=== PATIENT | male | born 1985 | race African-American/Black ===

== ENCOUNTER 2016-03-28 16:19 | Emergency (ER) | payer SELFPAY ==
[~2016-03-28] VITALS: Ht 182.9 cm; Wt 88.2 kg
[~2016-03-28 16:19] MED LIST: AMOXICILLIN; AMOXICILLIN 50500 MG PO; AMOXICILLIN 8751 TAB PO; AMOXICILLIN875 MG PO; BIAXIN 500MG T500 MG PO; DILANTIN; DILANTIN PO; FELDENE10 MG PO; FLEXERIL 1010 MG/TAB PO; LORTAB 5/500 501 TAB PO; NO HOME MEDICATIONS; NORCO 325 MG-51 TAB PO; PERCOCET 325 MG1 TA2 PO; PHENERGAN 25 TA25 MG PO; PREVACID 30MG30 M1 PO; TOPICAINE4% TP; ULTRAM 50MG TAB50 MG PO; ZOFRAN 4MG T4 MG/TAB PO
[2016-03-28 16:31] VITALS: BP 119/84; PULSE 83; TEMP 98.1
[2016-03-28] MEDS ORDERED: AMOXICILLIN 50500 MG PO (17:11)
== END 2016-03-28 17:19 | disposition home or self-care (01) ==
LOC: COL.ER 16:19
DX: H65.192 Other acute nonsuppurative otitis media, left ear (principal)

== ENCOUNTER 2016-04-22 06:04 | Emergency (ER) | payer SELFPAY ==
[~2016-04-22] VITALS: Ht 182.9 cm; Wt 90.9 kg
[2016-04-22 07:02] VITALS: BP 151/81; PULSE 73; TEMP 98
== END 2016-04-22 07:03 | disposition home or self-care (01) ==
LOC: COL.ER 06:04
DX: S60.451A Superficial foreign body of left index finger, initial encounter (principal); S60.457A Superficial foreign body of left little finger, initial encounter; S60.453A Superficial foreign body of left middle finger, initial encounter; S60.455A Superficial foreign body of left ring finger, initial encounter; S60.352A Superficial foreign body of left thumb, initial encounter; X58.XXXA Exposure to other specified factors, initial encounter; Y92.009 Unspecified place in unspecified non-institutional (private) residence as the place of occurrence of the external cause

== ENCOUNTER 2016-06-01 01:57 | Emergency (ER) | payer SELFPAY ==
[~2016-06-01] VITALS: Ht 185.4 cm; Wt 85.0 kg
[2016-06-01 02:01] VITALS: TEMP 98.3
[2016-06-01 03:03] LABS: BASO % 0.4 % (0.0-2.0); EOS # 0.1 (0.0-0.7); EOS % 1.3 % (0-4.0); GRAN # 2.3 (1.4-6.5); GRAN % 42.3 % (42.2-75.2); HEMOGLOBIN 15.8 g/dl (13.5-18.0); LYMPH # 2.6 (1.2-3.4); LYMPH % 47.4 % (20.0-51.0); MEAN CELL VOLUME 90 fl (80.0-100.0); MEAN CORPUSCULAR HEMOGLOBIN 29 pg (27.0-31.0); MEAN CORPUSCULAR HGB CONC 32 g/dl (33.0-37.0); MEAN PLATELET VOLUME 11.5 fl (7.4-10.4); MONO # 0.5 (0.1-0.6); MONO % 8.4 % (1.7-9.3); PLATELET COUNT 217 K/mm3 (130-400); RED BLOOD COUNT 5.46 M/mm3 (4.20-5.60); REDCELL DISTRIBUTION WIDTH-CV 11.8 % (11.5-14.5); WHITE BLOOD COUNT 5.5 K/mm3 (4.8-10.8)
[2016-06-01 03:17] LABS: ADJUSTED CALCIUM 9.2 mg/dL (8.4-10.2); ALANINE AMINOTRANSFERASE 58 U/L (21-72); ALBUMIN 4.7 gm/dL (3.5-5.0); ALKALINE PHOSPHATASE 107 U/L (50-136); ANION GAP 13 mmol/L (7-16); BILIRUBIN,TOTAL 0.9 mg/dL (0.0-1.0); BLOOD UREA NITROGEN 13 mg/dL (9-20); CALCIUM 9.8 mg/dL (8.4-10.2); CARBON DIOXIDE 24 mmol/L (22-30); CHLORIDE 103 mmol/L (98-107); CREATININE, serum 0.87 mg/dL (0.66-1.25); GLUCOSE 88 mg/dL (74-106); LIPASE 234 U/L (23-300); POTASSIUM 4.4 mmol/L (3.4-5.0); SODIUM 140 mmol/L (137-145); TOTAL PROTEIN 8.4 gm/dL (6.4-8.2)
[2016-06-01 03:17] LABS: PH 5 (5-8); SQUAMOUS EPITHELIAL None Seen /hpf; URINE APPEARANCE Clear; URINE BACTERIA None Seen /hpf; URINE BILIRUBIN Negative (NEGATIVE); URINE BLOOD Negative (NEGATIVE); URINE COLOR Yellow; URINE GLUCOSE Negative (NEGATIVE); URINE KETONE Negative (NEGATIVE); URINE RBC 0-2 /hpf; URINE UROBILINOGEN >=4.0 mg/dL (NEGATIVE); URINE WBC 0-2 /hpf
[2016-06-01 03:19] LABS: C-REACTIVE PROTEIN < 0.5 mg/dL (0.0-0.9)
[2016-06-01] MEDS ORDERED: NORCO 325 MG-51 TAB PO (04:13)
[2016-06-01] MEDS ORDERED: FLEXERIL 1010 MG/TAB PO (04:13)
[2016-06-01 04:38] VITALS: BP 119/53; PULSE 68
== END 2016-06-01 04:44 | disposition home or self-care (01) ==
LOC: COL.ER 01:57
PROVIDERS: Physician Assistant
DX: R10.12 Left upper quadrant pain (principal); M54.89 Other dorsalgia
CPT/HCPCS: J1170; J1885; J2060; J2405; J3010; J7030

== ENCOUNTER 2016-06-03 14:39 | Emergency (ER) | payer SELFPAY ==
[~2016-06-03] VITALS: Ht 185.4 cm; Wt 85.0 kg
[2016-06-03 14:42] VITALS: BP 133/75; TEMP 97.6
[2016-06-03 15:28] LABS: BASO % 0.5 % (0.0-2.0); EOS % 1.1 % (0-4.0); GRAN # 1.5 (1.4-6.5); GRAN % 41.8 % (42.2-75.2); HEMOGLOBIN 15.6 g/dl (13.5-18.0); LYMPH # 1.7 (1.2-3.4); LYMPH % 45.4 % (20.0-51.0); MEAN CELL VOLUME 91 fl (80.0-100.0); MEAN CORPUSCULAR HEMOGLOBIN 29 pg (27.0-31.0); MEAN CORPUSCULAR HGB CONC 32 g/dl (33.0-37.0); MONO # 0.4 (0.1-0.6); MONO % 10.9 % (1.7-9.3); PLATELET COUNT 207 K/mm3 (130-400); RED BLOOD COUNT 5.41 M/mm3 (4.20-5.60); REDCELL DISTRIBUTION WIDTH-CV 11.7 % (11.5-14.5); WHITE BLOOD COUNT 3.7 K/mm3 (4.8-10.8)
[2016-06-03 15:38] LABS: ADJUSTED CALCIUM 9.2 mg/dL (8.4-10.2); ALBUMIN 4.5 gm/dL (3.5-5.0); CALCIUM 9.6 mg/dL (8.4-10.2); CREATININE, serum 0.83 mg/dL (0.66-1.25); POTASSIUM 4.5 mmol/L (3.4-5.0)
[2016-06-03] MEDS ORDERED: NORCO 325 MG-51 TAB PO (16:18)
[2016-06-03 16:25] LABS: PH 7 (5-8); SQUAMOUS EPITHELIAL None Seen /hpf; URINE APPEARANCE Clear; URINE BACTERIA Rare /hpf; URINE BILIRUBIN Negative (NEGATIVE); URINE BLOOD Negative (NEGATIVE); URINE COLOR Yellow; URINE GLUCOSE Negative (NEGATIVE); URINE KETONE Negative (NEGATIVE); URINE RBC 0-2 /hpf; URINE UROBILINOGEN Negative (NEGATIVE); URINE WBC 0-2 /hpf
[2016-06-03 16:51] VITALS: PULSE 70
== END 2016-06-03 16:53 | disposition home or self-care (01) ==
LOC: COL.ER 14:39
PROVIDERS: Family Medicine
DX: R10.12 Left upper quadrant pain (principal); R10.32 Left lower quadrant pain
CPT/HCPCS: J1885; J2405; J7030; Q9967

== ENCOUNTER 2016-07-23 08:39 | Emergency (ER) | payer SELFPAY ==
[~2016-07-23] VITALS: Ht 182.9 cm; Wt 82.3 kg
[2016-07-23 08:42] VITALS: BP 143/85; TEMP 98.9
[2016-07-23] MEDS ORDERED: MULTIPLE VITAMI1 CAP PO (08:47)
[2016-07-23] MEDS ORDERED: ZITHROMAX Z PA250 MG PO (10:30)
[2016-07-23 11:01] VITALS: PULSE 81
== END 2016-07-23 11:03 | disposition home or self-care (01) ==
LOC: COL.ER 08:39
DX: J40 Bronchitis, not specified as acute or chronic (principal); F31.9 Bipolar disorder, unspecified; G40.909 Epilepsy, unspecified, not intractable, without status epilepticus; R73.03 Prediabetes; F17.210 Nicotine dependence, cigarettes, uncomplicated

== ENCOUNTER 2018-07-03 20:08 | Emergency (ER) | payer SELFPAY ==
[~2018-07-03] VITALS: Ht 182.9 cm; Wt 91.4 kg
[~2018-07-03 20:08] MED LIST changes: +MULTIPLE VITAMI1 CAP PO; +ZITHROMAX Z PA250 MG PO
[2018-07-03 20:16] VITALS: TEMP 97.3
[2018-07-03 20:58] LABS: BASO % 0.4 % (0.0-2.0); EOS # 0.1 (0.0-0.7); EOS % 1.3 % (0-4.0); GRAN # 2.1 (1.4-6.5); GRAN % 44.3 % (42.2-75.2); HEMATOCRIT 45.8 % (42.0-52.0); HEMOGLOBIN 14.8 g/dl (13.5-18.0); LYMPH # 2.1 (1.2-3.4); LYMPH % 45.3 % (20.0-51.0); MEAN CELL VOLUME 91 fl (80.0-100.0); MEAN CORPUSCULAR HEMOGLOBIN 30 pg (27.0-31.0); MEAN CORPUSCULAR HGB CONC 32 g/dl (33.0-37.0); MEAN PLATELET VOLUME 10.8 fl (7.4-10.4); MONO # 0.4 (0.1-0.6); MONO % 8.5 % (1.7-9.3); PLATELET COUNT 206 K/mm3 (130-400); RED BLOOD COUNT 5.02 M/mm3 (4.20-5.60); REDCELL DISTRIBUTION WIDTH-CV 11.7 % (11.5-14.5)
[2018-07-03 21:13] LABS: ALANINE AMINOTRANSFERASE 52 U/L (21-72); ALBUMIN 4.2 gm/dL (3.5-5.0); ALKALINE PHOSPHATASE 91 U/L (50-136); ANION GAP 8 mmol/L (7-16); AST,SGOT 41 U/L (15-37); BILIRUBIN,TOTAL 0.7 mg/dL (0.0-1.0); BLOOD UREA NITROGEN 10 mg/dL (9-20); CALCIUM 9.5 mg/dL (8.4-10.2); CARBON DIOXIDE 26 mmol/L (22-30); CHLORIDE 104 mmol/L (98-107); CREATININE, serum 0.91 (0.66-1.25); GLUCOSE 136 mg/dL (74-106); POTASSIUM 3.6 mmol/L (3.4-5.0); SODIUM 138 mmol/L (137-145); TOTAL PROTEIN 7.4 gm/dL (6.4-8.2)
[2018-07-03 21:14] LABS: C-REACTIVE PROTEIN < 0.5 mg/dL (0.0-0.9)
[2018-07-03] MEDS ORDERED: PRINIVIL5 MG PO (21:28)
[2018-07-03] MEDS ORDERED: LOPRESSOR 225 MG/TAB PO (21:28)
[2018-07-03 21:35] LABS: TROPONIN-I < 0.012 ng/mL (0.000-0.035)
[2018-07-03 22:05] VITALS: BP 144/94; PULSE 69
== END 2018-07-03 22:00 | disposition home or self-care (01) ==
LOC: COL.ER 20:08
PROVIDERS: Emergency Medicine
DX: R07.89 Other chest pain (principal); I50.9 Heart failure, unspecified; I48.91 Unspecified atrial fibrillation

== ENCOUNTER 2018-09-14 01:22 | Emergency (ER) | payer SELFPAY ==
[~2018-09-14] VITALS: Ht 180.3 cm; Wt 92.3 kg
[~2018-09-14 01:22] MED LIST changes: +LOPRESSOR 225 MG/TAB PO; +PRINIVIL5 MG PO
[2018-09-14 01:39] VITALS: BP 125/78
[2018-09-14] MEDS ORDERED: ASPIRIN 81M81 MG/TA2 PO (01:48)
[2018-09-14 02:26] LABS: BASO % 0.5 % (0.0-2.0); EOS # 0.1 (0.0-0.7); EOS % 0.9 % (0-4.0); GRAN # 2.1 (1.4-6.5); GRAN % 36.4 % (42.2-75.2); HEMATOCRIT 45.6 % (42.0-52.0); HEMOGLOBIN 14.6 g/dl (13.5-18.0); LYMPH # 3.2 (1.2-3.4); LYMPH % 55.5 % (20.0-51.0); MEAN CELL VOLUME 92 fl (80.0-100.0); MEAN CORPUSCULAR HEMOGLOBIN 30 pg (27.0-31.0); MEAN CORPUSCULAR HGB CONC 32 g/dl (33.0-37.0); MEAN PLATELET VOLUME 11.1 fl (7.4-10.4); MONO # 0.4 (0.1-0.6); MONO % 6.4 % (1.7-9.3); PLATELET COUNT 204 K/mm3 (130-400); RED BLOOD COUNT 4.94 M/mm3 (4.20-5.60); REDCELL DISTRIBUTION WIDTH-CV 11.9 % (11.5-14.5)
[2018-09-14 02:31] LABS: INR 0.9 (0.8-3.0); PROTHROMBIN TIME 10.2 SECONDS (9.7-12.8)
[2018-09-14 02:35] LABS: ALANINE AMINOTRANSFERASE 54 U/L (21-72); ALBUMIN 4.1 gm/dL (3.5-5.0); ALKALINE PHOSPHATASE 84 U/L (50-136); ANION GAP 10 mmol/L (7-16); AST,SGOT 53 U/L (15-37); BILIRUBIN,TOTAL 0.4 mg/dL (0.0-1.0); BLOOD UREA NITROGEN 14 mg/dL (9-20); CALCIUM 9.4 mg/dL (8.4-10.2); CARBON DIOXIDE 27 mmol/L (22-30); CHLORIDE 103 mmol/L (98-107); CREATININE, serum 1.02 (0.66-1.25); GLUCOSE 117 mg/dL (74-106); POTASSIUM 3.7 mmol/L (3.4-5.0); SODIUM 140 mmol/L (137-145); TOTAL PROTEIN 7.2 gm/dL (6.4-8.2)
[2018-09-14 02:46] LABS: TROPONIN-I < 0.012 ng/mL (0.000-0.035)
[2018-09-14] MEDS ORDERED: PEPCID 20MG TAB20 MG PO (03:43)
== END 2018-09-14 04:05 | disposition home or self-care (01) ==
LOC: COL.ER 01:22
PROVIDERS: Emergency Medicine
DX: K29.70 Gastritis, unspecified, without bleeding (principal); K21.9 Gastro-esophageal reflux disease without esophagitis; J45.909 Unspecified asthma, uncomplicated; I48.91 Unspecified atrial fibrillation; F17.210 Nicotine dependence, cigarettes, uncomplicated; Z79.82 Long term (current) use of aspirin

== ENCOUNTER 2018-10-12 00:15 | Emergency (ER) | payer SELFPAY ==
[~2018-10-12] VITALS: Ht 180.3 cm; Wt 93.2 kg
[~2018-10-12 00:15] MED LIST changes: +ASPIRIN 81M81 MG/TA2 PO; +PEPCID 20MG TAB20 MG PO
[2018-10-12 00:25] VITALS: BP 121/94; TEMP 97.5
[2018-10-12 01:08] LABS: STREP SCREEN POSITIVE
[2018-10-12 01:51] VITALS: PULSE 82
== END 2018-10-12 01:42 | disposition home or self-care (01) ==
LOC: COL.ER 00:15
PROVIDERS: Nurse Practitioner
DX: J02.0 Streptococcal pharyngitis (principal); Z79.82 Long term (current) use of aspirin
CPT/HCPCS: J0561

== ENCOUNTER 2019-03-09 12:52 | Emergency (ER) | payer BC ==
[~2019-03-09] VITALS: Ht 182.9 cm; Wt 85.8 kg
[2019-03-09 15:29] LABS: BASO % 0.4 % (0.0-2.0); EOS % 0.7 % (0-4.0); GRAN # 3.1 (1.4-6.5); HEMATOCRIT 47.1 % (42.0-52.0); HEMOGLOBIN 15.1 g/dl (13.5-18.0); LYMPH # 1.7 (1.2-3.4); LYMPH % 32.5 % (20.0-51.0); MEAN CELL VOLUME 92 fl (80.0-100.0); MEAN CORPUSCULAR HEMOGLOBIN 30 pg (27.0-31.0); MEAN CORPUSCULAR HGB CONC 32 g/dl (33.0-37.0); MEAN PLATELET VOLUME 10.9 fl (7.4-10.4); MONO # 0.4 (0.1-0.6); PLATELET COUNT 192 K/mm3 (130-400); RED BLOOD COUNT 5.11 M/mm3 (4.20-5.60); REDCELL DISTRIBUTION WIDTH-CV 11.5 % (11.5-14.5)
[2019-03-09 15:45] LABS: ALANINE AMINOTRANSFERASE 46 U/L (21-72); ALBUMIN 4.3 gm/dL (3.5-5.0); ALKALINE PHOSPHATASE 84 U/L (50-136); ANION GAP 8 mmol/L (7-16); AST,SGOT 34 U/L (15-37); BILIRUBIN,TOTAL 0.9 mg/dL (0.0-1.0); BLOOD UREA NITROGEN 11 mg/dL (9-20); CALCIUM 9.1 mg/dL (8.4-10.2); CARBON DIOXIDE 26 mmol/L (22-30); CHLORIDE 107 mmol/L (98-107); CREATININE, serum 0.84 (0.66-1.25); GLUCOSE 105 mg/dL (74-106); SODIUM 140 mmol/L (137-145); TOTAL PROTEIN 7.3 gm/dL (6.4-8.2)
[2019-03-09 16:03] LABS: TROPONIN-I < 0.012 ng/mL (0.000-0.035)
[2019-03-09] MEDS ORDERED: ULTRAM 50MG TAB50 MG PO (16:21)
[2019-03-09 16:41] VITALS: BP 130/79; PULSE 61; TEMP 98.2
== END 2019-03-09 16:55 | disposition home or self-care (01) ==
LOC: COL.ER 12:52
PROVIDERS: Nurse Practitioner
DX: R07.89 Other chest pain (principal); I50.9 Heart failure, unspecified; J45.909 Unspecified asthma, uncomplicated; F31.9 Bipolar disorder, unspecified; F17.210 Nicotine dependence, cigarettes, uncomplicated
CPT/HCPCS: J1885

== ENCOUNTER 2019-03-19 14:16 | Emergency (ER) | payer SELFPAY ==
[~2019-03-19] VITALS: Ht 182.9 cm; Wt 85.5 kg
[2019-03-19 14:34] VITALS: BP 131/76; TEMP 98.8
[2019-03-19] MEDS ORDERED: NORCO 325 MG-51 TAB PO (16:53)
[2019-03-19 18:55] VITALS: PULSE 61
== END 2019-03-19 19:11 | disposition home or self-care (01) ==
LOC: COL.ER 14:16
DX: S62.620A Displaced fracture of middle phalanx of right index finger, initial encounter for closed fracture (principal); S29.012A Strain of muscle and tendon of back wall of thorax, initial encounter; I50.9 Heart failure, unspecified; F31.9 Bipolar disorder, unspecified; G40.909 Epilepsy, unspecified, not intractable, without status epilepticus; F17.210 Nicotine dependence, cigarettes, uncomplicated; W00.0XXA Fall on same level due to ice and snow, initial encounter

== ENCOUNTER 2019-04-26 14:04 | Outpatient (RCR) | payer OTHER | END 2019-06-28 | disposition home or self-care (01) | LOC: WSOH | DX: S30.0XXA Contusion of lower back and pelvis, initial encounter (principal); S20.222A Contusion of left back wall of thorax, initial encounter; F17.210 Nicotine dependence, cigarettes, uncomplicated; Y99.0 Civilian activity done for income or pay ==

== ENCOUNTER 2021-03-29 21:40 | Emergency (ER) | payer MEDICAID ==
[~2021-03-29] VITALS: Ht 182.9 cm; Wt 88.6 kg
[2021-03-29 21:45] VITALS: TEMP 98.2
[2021-03-29 22:31] LABS: BASO % 0.5 % (0.0-2.0); EOS # 0.1 K/mm3 (0.0-0.7); EOS % 1.3 % (0.0-4.0); GRAN # 2.6 K/mm3 (1.4-6.5); GRAN % 43.9 % (42.2-75.2); HEMATOCRIT 45.6 % (42.0-52.0); HEMOGLOBIN 14.4 g/dl (13.5-18.0); LYMPH # 2.8 K/mm3 (1.2-3.4); LYMPH % 46.1 % (20.0-51.0); MEAN CELL VOLUME 90 fl (80.0-100.0); MEAN CORPUSCULAR HEMOGLOBIN 29 pg (27-31); MEAN CORPUSCULAR HGB CONC 32 g/dl (33.0-37.0); MEAN PLATELET VOLUME 10.5 fl (7.4-10.4); MONO # 0.5 K/mm3 (0.1-0.6); PLATELET COUNT 253 K/mm3 (130-400); RED BLOOD COUNT 5.06 M/mm3 (4.20-5.60)
[2021-03-29 22:41] LABS: COLLECTION METHOD CLEAN CATCH
[2021-03-29 22:47] LABS: MUCOUS Present (NOT PRESENT); PH 6 (5-8); SQUAMOUS EPITHELIAL None Seen /hpf (0-10); URINE APPEARANCE Clear (CLEAR/HAZY); URINE BACTERIA None Seen /hpf (NONE SEEN); URINE BILIRUBIN Negative (NEGATIVE); URINE BLOOD Negative (NEGATIVE); URINE COLOR Yellow (YELLOW); URINE GLUCOSE Negative (NEGATIVE); URINE KETONE Negative (NEGATIVE); URINE LEUKOCYTE ESTERASE Negative (NEGATIVE); URINE NITRATE Negative (NEGATIVE); URINE PROTEIN(semi-quant) Negative (NEGATIVE); URINE UROBILINOGEN >=4.0 (NEGATIVE)
[2021-03-29 22:49] LABS: CALCIUM 9.3 mg/dL (8.4-10.2); CREATININE, serum 1.01 mg/dL (0.72-1.25); POTASSIUM 3.6 mmol/L (3.5-4.5); TOTAL PROTEIN 7.7 gm/dL (6.2-8.1)
[2021-03-29 23:15] LABS: BILIRUBIN,TOTAL 0.6 mg/dL (0.2-1.2)
[2021-03-30 02:02] VITALS: BP 126/72; PULSE 78
== END 2021-03-30 02:02 | disposition home or self-care (01) ==
LOC: COL.ER 21:40
PROVIDERS: Student in an Organized Health Care Education/Training Program
DX: M54.50 Low back pain, unspecified (principal); I50.9 Heart failure, unspecified; I11.0 Hypertensive heart disease with heart failure; I48.91 Unspecified atrial fibrillation; Z79.899 Other long term (current) drug therapy
CPT/HCPCS: Q9967

== ENCOUNTER 2023-10-22 14:36 | Emergency (ER) | payer OTHER ==
[~2023-10-22] VITALS: Ht 182.9 cm; Wt 81.8 kg
[2023-10-22 14:49] VITALS: TEMP 97.7
[2023-10-22] MEDS ORDERED: Iohexol 300 - 100 ML VIAL IV ONE (15:32)
[2023-10-22] MEDS ORDERED: NS 100 ML IV SCH (15:33)
[2023-10-22] MEDS ORDERED: Ketorolac 15 MG/ML VIAL IV ONE (16:30)
[2023-10-22 17:20] VITALS: BP 128/83; PULSE 52
== END 2023-10-22 17:26 | disposition home or self-care (01) ==
LOC: COL.ER 14:36
DX: R10.9 Unspecified abdominal pain (principal); F17.210 Nicotine dependence, cigarettes, uncomplicated; Z91.040 Latex allergy status
CPT/HCPCS: J1885; Q9967